=== PATIENT | female | born 1985 ===

== ENCOUNTER 2018-10-02 16:55 | Emergency (ER) | payer OTHER, SELFPAY ==
[~2018-10-02] VITALS: Ht 165.1 cm; Wt 102.5 kg
--- NOTE | 2018-10-02 17:17 | NUR ---
US DELAYED, WAITING FOR PT TO GET ANTI NAUSEA MEDS
[2018-10-02 17:26] LABS: BASOPHILS # (AUTO) 0.05 x10^3/uL (0-0.1); BASOPHILS % (AUTO) 1 % (0-1); EOSINOPHILS # (AUTO) 0.12 x10^3/uL (0-0.4); EOSINOPHILS % (AUTO) 2 % (1-7); LYMPHOCYTES # (AUTO) 2.88 x10^3/uL (1-3.4); LYMPHOCYTES % (AUTO) 39 % (22-44); MD NO; MEAN CORPUSCULAR HEMOGLOBIN 29.7 pg (27.0-34.8); MEAN CORPUSCULAR HGB CONC 33.8 g/dL (32.4-35.8); MEAN PLATELET VOLUME 7.7 fL (7.4-10.4); MONOCYTES # (AUTO) 0.55 x10^3/uL (0.2-0.8); MONOCYTES % (AUTO) 7 % (2-9); NEUTROPHILS # (AUTO) 3.87 x10^3/uL (1.8-6.8); NEUTROPHILS % (AUTO) 52 % (42-75); PLATELET COUNT 354 x10^3/uL (130-400); RED BLOOD COUNT 4.86 x10^6/uL (3.82-5.3); RED CELL DISTRIBUTION WIDTH 13.6 % (9.6-15.2)
[2018-10-02] MEDS ORDERED: ONDANSETRON 2MG/ML, 2ML ONE (17:26)
[2018-10-02] MEDS ORDERED: FAMOTIDINE 20 MG/2 ML ONE (17:26)
[2018-10-02] MEDS ORDERED: ONDANSETRON 2MG/ML, 2ML IVPush ONE (17:30)
[2018-10-02] MEDS ORDERED: FAMOTIDINE 20 MG/2 ML IVP ONE (17:30)
[2018-10-02 17:36] LABS: ALANINE AMINOTRANSFERASE 45 U/L (12-78); ALBUMIN 3.6 g/dL (3.4-5.0); ANION GAP 7 mmol/L (5-15); CALCIUM 8.6 mg/dL (8.5-10.1); CHLORIDE 111 mmol/L (98-107); CREATININE 1.02 mg/dL (0.55-1.02)
[2018-10-02 17:41] LABS: ALKALINE PHOSPHATASE 92 U/L (45-117); BILIRUBIN,TOTAL 0.3 mg/dL (0.2-1.0); TOTAL PROTEIN 7.5 g/dL (6.4-8.2)
[2018-10-02] MEDS ORDERED: HYDROmorphone 1 MG/ML, 1ML IM ONE (19:00)
[2018-10-02 19:17] LABS: MICROSCOPIC INDICATED
[2018-10-02] MEDS ORDERED: HYDROcodone/APAP 5/325 TABLET ONE (19:24)
[2018-10-02 19:29] VITALS: BP 128/83
[2018-10-02] MEDS ORDERED: HYDROcodone/APAP 5/325 TABLET PO ONE (19:30)
[2018-10-02 19:40] LABS: CULTURE INDICATED? NO
== END 2018-10-02 19:49 | disposition home or self-care (01) ==
LOC: ED 19:42
DX: K80.20 Calculus of gallbladder without cholecystitis without obstruction (principal)
CPT/HCPCS: 36415; 76700; 80053; 81001; 83690; 84703; 85025; 96374; 96375; 99284; J2405; J3490